=== PATIENT | male | born 1940 | race Caucasian/White ===

== ENCOUNTER 2018-01-26 15:55 | Emergency (ER) | payer MEDICARE, OTHER ==
[2018-01-26 16:30] LABS: CHLORIDE,CL 104 mEq/L (98-106); SODIUM,NA 140 mEq/L (136-145)
[2018-01-26] MEDS ORDERED: cloNIDine 0.1 MG Tab PO SCH (16:30)
[2018-01-26] MEDS ORDERED: Sodium Chloride 0.45% 1,000 ML ONE (16:36)
[2018-01-26] MEDS ORDERED: Verapamil 5 MG/2 ML SDV IVPUSH ONE (16:45)
[2018-01-26] MEDS ORDERED: Sodium Chloride 0.45% 1,000 ML IV SCH (17:00)
--- NOTE | 2018-01-26 17:28 | EDM.PDOC ---
ED HPI GENERAL MEDICAL PROBLEM - General Chief Complaint: Neuro Symptoms/Deficits Stated Complaint: ? STROKE Time Seen by Provider: 01/26/18 16:30 Source of Information: Reports: Patient History Limitations: Reports: Altered Mental Status - History of Present Illness INITIAL COMMENTS - FREE TEXT/NARRATIVE: Patient presents ambulatory after driving himself here from near [place] with just not feeling right. He states he is having a hard time making decisions, "brain feels foggy". He does not obtain routine health care. Has not seen a provider in 4 years. Was on medications previously for high blood pressure and cholesterol per [facility] in [place] but has not filled them since July. He is unable to recall what meds he takes other than Anacin. He denies any numbness, tingling, weakness in his arms or legs. History of previous stroke but denies any long lasting symptoms from that. Nephew did tell nurse he has been having more spells where he seems dazed and doesn't answer questions as well. Thought he was having "mini strokes" but the patient would not go in to be seen. Onset: Gradual Duration: Hour(s): Location: Reports: Generalized Improves with: Reports: None Associated Symptoms: Reports: Confusion, Cough, Malaise. Denies: Chest Pain, Nausea/Vomiting, Shortness of Breath, Syncope, Weakness - Related Data Allergies Allergy/AdvReac Type Severity Reaction Status Date / Time No Known Allergies Allergy Verified 01/26/18 16:19 Home Meds: Home Meds . [Unable to Verify Home Med List] 01/26/18 [History] Past Medical History Cardiovascular History: Reports: High Cholesterol, Hypertension Neurological History: Reports: CVA Social & Family History - Tobacco Use Smoking Status *Q: Never Smoker - Caffeine Use Caffeine Use: Reports: None - Recreational Drug Use Recreational Drug Use: No ED ROS GENERAL - Review of Systems Review Of Systems: See Below Constitutional: Reports: Malaise, Weakness, Fatigue, Decreased Appetite. Denies : Fever, Chills HEENT: Denies: Ear Discharge, Ear Pain, Rhinitis, Sinus Problem, Throat Pain Respiratory: Reports: Cough. Denies: Shortness of Breath Cardiovascular: Denies: Chest Pain, Edema, Lightheadedness Endocrine: Reports: Fatigue GI/Abdominal: Denies: Abdominal Pain, Nausea, Vomiting Musculoskeletal: Reports: No Symptoms Skin: Reports: No Symptoms Neurological: Reports: Confusion, Trouble Speaking. Denies: Dizziness, Headache , Syncope ED EXAM, NEURO - Physical Exam Exam: See Below Exam Limited By: Altered Mental Status General Appearance: Alert, WD/WN Eye Exam: Bilateral Eye: EOMI, PERRL Ears: Normal External Exam, Normal TMs Nose: Normal Inspection, Normal Mucosa, No Blood Throat/Mouth: Normal Inspection, Normal Oropharynx Head Exam: Normocephalic Neck: Normal Inspection Respiratory/Chest: No Respiratory Distress, Lungs Clear, Normal Breath Sounds Cardiovascular: Irregularly Irregular GI/Abdominal: Normal Bowel Sounds, Soft, Non-Tender Neurological: Alert, CN II-XII Intact, No Motor/Sensory Deficits, Oriented x 3, Other (slow to respond, states hard to come up with answers. Is oriented. Drove his vehicle here to [place] and presented to clinic. Gait is normal. RADAMES intact but slow, point to point discretion intact but slow. ) Extremities: Normal Range of Motion Skin Exam: Warm, Dry EKG INTERPRETATION EKG Date: 01/26/18 Rhythm: A-Fib QRS: RBBB Comparison: NA - No Prior EKG Course - Vital Signs Last Recorded V/S: Last Vital Signs Temp 97.2 F 01/26/18 16:30 Pulse 53 L 01/26/18 19:25 Resp 20 01/26/18 19:25 BP 104/68 01/26/18 19:25 Pulse Ox 98 01/26/18 19:25 - Orders/Labs/Meds Orders: Active Orders 24 hr Category Date Time Status Chest 1V Frontal [CR] Routine Exams 01/26/18 Taken Head wo Cont [CT] Stat Exams 01/26/18 16:20 Taken Sodium Chloride 0.45% 1,000 ml Med 01/26/18 17:00 Active IV ASDIRECTED cloNIDine [Catapres] Med 01/26/18 16:30 Active 0.1 mg PO DAILY Medication Orders Clonidine HCl (Catapres) 0.1 mg PO DAILY DIANA Last Admin: 01/26/18 16:24 Dose: 0.1 mg Sodium Chloride (Sodium Chloride 0.45%) 1,000 mls @ 25 mls/hr IV ASDIRECTED DIANA Last Admin: 01/26/18 16:48 Dose: 25 mls/hr Labs: Laboratory Tests 08/27/18 08/27/18 08/27/18 Range/Units 16:11 16:11 16:11 WBC 7.7 (5.0-10.0) 10^3/uL RBC 5.99 (4.50-6.00) 10^6/uL Hgb 17.2 (14.0-18.0) g/dL Hct 52.9 (40.0-54.0) % MCV 88.3 (82.0-94.0) fL MCH 28.7 (27.0-32.0) pg MCHC 32.5 L (33.0-38.0) g/dL RDW Coeff of Jose 14.8 (11.0-15.0) % Plt Count 218 (150-400) 10^3/uL Neut % (Auto) 62.3 (35-85) % Lymph % (Auto) 27.3 (10-55) % Brule % (Auto) 8.0 (0-16) % Eos % (Auto) 2.0 (0-5) % Baso % (Auto) 0.4 (0-3) % Neut # (Auto) 4.78 (1.80-7.00) 10^3/uL Lymph # (Auto) 2.09 (1.00-4.80) 10^3/uL Brule # (Auto) 0.61 (0.00-0.80) 10^3/uL Eos # (Auto) 0.15 (0.00-0.45) 10^3/uL Baso # (Auto) 0.03 10^3/uL PT 10.7 (9.7-12.3) SEC INR 1.03 (0.92-1.18) APTT 30.3 (23.2-32.3) SEC D-Dimer, Quantitative 0.27 (0.00-0.50) Sodium 140 (136-145) mEq/L Potassium 3.8 (3.5-5.0) mEq/L Chloride 104 (98-106) mEq/L Carbon Dioxide 31 (21-32) mmol/L BUN 10 (7-18) mg/dL Creatinine 1.0 (0.7-1.3) mg/dL Est Cr Clr Drug Dosing TNP Estimated GFR (MDRD) > 60 (>=60) mL/min Glucose 92 (75-99) mg/dL Calcium 8.9 (8.4-10.1) mg/dL Creatine Kinase 240 H (35-232) U/L Troponin I < 0.017 (0.00-0.06) ng/mL Meds: Medications Generic Name Dose Route Start Last Admin Trade Name Benita PRN Reason Stop Dose Admin Clonidine HCl 0.1 mg 01/26/18 16:30 01/26/18 16:24 Catapres PO 0.1 mg DAILY DIANA Administration Sodium Chloride 1,000 mls @ 25 mls/hr 01/26/18 17:00 01/26/18 16:48 Sodium Chloride 0.45% IV 25 mls/hr ASDIRECTED DIANA Administration Discontinued Medications Generic Name Dose Route Start Last Admin Trade Name Freq PRN Reason Stop Dose Admin Atropine Sulfate 0.5 mg 01/26/18 19:10 01/26/18 19:10 Atropine 0.1 Mg/Ml IVPUSH 01/26/18 19:11 0.5 mg ONETIME ONE Administration Atropine Sulfate 0.5 mg 01/26/18 19:18 01/26/18 19:18 Atropine 0.1 Mg/Ml IVPUSH 01/26/18 19:19 0.5 mg ONETIME ONE Administration Sodium Chloride Confirm 01/26/18 16:36 01/26/18 16:58 Sodium Chloride 0.45% Administered 01/26/18 16:37 Not Given Dose 1,000 mls @ as directed .ROUTE .STK-MED ONE Sodium Chloride Confirm 01/26/18 19:10 01/26/18 19:25 Normal Saline Administered 01/26/18 19:11 999 mls/hr Dose Administration 2,000 mls @ as directed .ROUTE .STK-MED ONE Verapamil HCl 2.5 mg 01/26/18 16:45 01/26/18 16:45 Calan IVPUSH 01/26/18 16:46 2.5 mg ONETIME ONE Administration - Re-Assessments/Exams Free Text/Narrative Re-Assessment/Exam: 01/26/18 19:49 0- Contacted [facility] and spoke with Dr. Alvarez about transfer/status of patient. Agreed to accept the patient in transfer. 0-Patient calls with "not feeling well again". Heart rate down in to the 30s , blood pressure low. See nurses notes for med times and blood pressures. Atropine 0.5 given. Speech slurred, mumbling not feeling well, difficult to understand. Skin cool and clammy. Second liter of fluid bolus started, second line inserted. 1914-Second dose of Atropine given as heart rate in the 40s. Blood pressure improving. See nurses notes. 1929- Patient more responsive. Heart rate stable in the 50s. Blood pressure stabilizing. More clear, answering questions more clearly. Departure - Departure Time of Disposition: 20:00 Disposition: DC/Tfer to Acute Hospital 02 Condition: Undetermined Clinical Impression: Syncope, Altered mental status - Discharge Information *PRESCRIPTION DRUG MONITORING PROGRAM REVIEWED*: No *COPY OF PRESCRIPTION DRUG MONITORING REPORT IN PATIENT CARLENE: No Forms: ED Department Discharge Additional Instructions: Transfer [facility] to [facility]. Keep NPO at this time. - My Orders Last 24 Hours: My Active Orders 01/26/18 Chest 1V Frontal [CR] Routine 01/26/18 16:20 Head wo Cont [CT] Stat 01/26/18 16:30 cloNIDine [Catapres] 0.1 mg PO DAILY 01/26/18 17:00 Sodium Chloride 0.45% 1,000 ml IV ASDIRECTED - Assessment/Plan Last 24 Hours: My Active Orders 01/26/18 Chest 1V Frontal [CR] Routine 01/26/18 16:20 Head wo Cont [CT] Stat 01/26/18 16:30 cloNIDine [Catapres] 0.1 mg PO DAILY 01/26/18 17:00 Sodium Chloride 0.45% 1,000 ml IV ASDIRECTED
[2018-01-26] MEDS ORDERED: Sodium Chloride 0.9% 2,000 ML ONE (19:10)
[2018-01-26] MEDS ORDERED: Atropine 0.1 MG/ML 10 ML Syringe IVPUSH ONE ×2 (19:10→19:18)
== END 2018-01-26 20:30 ==
LOC: CC.ED 15:55
DX: R55 Syncope and collapse (principal); R41.82 Altered mental status, unspecified; I10 Essential (primary) hypertension
CPT/HCPCS: 36415; 70450; 71045; 80048; 82550; 82962; 84484; 85025; 85379; 85610; 85730; 93005; 93010; 96360; 96361; 96374; 96375; 99284; 99285; A9270-GY; J0461; J3490; J7030